=== PATIENT | female | born 1990 | race Caucasian/White ===

== ENCOUNTER 2016-10-27 14:08 | Emergency (ER) | payer OTHER ==
[2016-10-27 14:15] VITALS: BP 144/88
--- NOTE | 2016-10-27 15:24 | UC ---
Throat Pain/Nasal Reji HPI - HPI Summary HPI Summary: Sore throat body aches and loose stool for 4 days--- - History of Current Complaint Chief Complaint: UCRespiratory Stated Complaint: SORE THROAT Time Seen by Provider: 10/27/16 15:24 Hx Obtained From: Patient Hx Last Menstrual Period: 4 months ago ?: No Onset/Duration: Sudden Onset, Lasting Days - 4 Cough: None Associated Signs & Symptoms: Positive: Negative - Allergies/Home Medications Allergies/Adverse Reactions: Allergies Allergy/AdvReac Type Severity Reaction Status Date / Time No Known Allergies Allergy Verified 10/27/16 14:15 PMH/Surg Hx/FS Hx/Imm Hx Previously Healthy: Yes - Surgical History Surgical History: None - Family History Known Family History: Positive: None - Social History Occupation: Employed Full-time Lives: With Family Alcohol Use: Rare Substance Use Type: None Smoking Status (MU): Light Every Day Tobacco Smoker Type: Cigarettes Amount Used/How Often: 1/2 ppd Household Exposure Type: Cigarettes Cessation Counseling: Patient Advised to Stop Review of Systems Constitutional: Fatigue Skin: Negative Eyes: Negative ENT: Sore Throat Respiratory: Negative Cardiovascular: Negative Gastrointestinal: Diarrhea Genitourinary: Negative Motor: Negative Neurovascular: Negative Musculoskeletal: Negative Neurological: Negative Psychological: Negative Is Patient Immunocompromised?: Yes All Other Systems Reviewed And Are Negative: No Physical Exam Triage Information Reviewed: Yes Appearance: Well-Appearing, No Pain Distress, Well-Nourished Vital Signs: Initial Vital Signs Temp 98.0 F 10/27/16 14:12 Pulse 117 10/27/16 14:12 Resp 18 10/27/16 14:12 BP 144/88 10/27/16 14:12 Pulse Ox 99 10/27/16 14:12 Vital Signs Reviewed: Yes Eye Exam: Normal Eyes: Positive: Conjunctiva Clear ENT Exam: Normal ENT: Positive: Normal ENT inspection, Hearing grossly normal, Pharynx normal, TMs normal. Negative: Nasal congestion, Nasal drainage, Trismus, Muffled/ hoarse voice Dental Exam: Normal Neck exam: Normal Neck: Positive: Supple, Nontender, No Lymphadenopathy Respiratory Exam: Normal Respiratory: Positive: Chest non-tender, No respiratory distress Cardiovascular Exam: Normal Cardiovascular: Positive: RRR, No Murmur, Brisk Capillary Refill Abdominal Exam: Normal Abdomen Description: Positive: Nontender, No Organomegaly, Soft. Negative: CVA Tenderness (R), CVA Tenderness (L) Bowel Sounds: Positive: Present Musculoskeletal Exam: Normal Musculoskeletal: Positive: Strength Intact, ROM Intact Neurological Exam: Normal Neurological: Positive: Alert, Muscle Tone Normal Psychological Exam: Normal Skin Exam: Normal Diagnostics - Laboratory ABG Interpretation: rst and Flu A (-) Throat Pain/Nasal Course/Dx - Course Assessment/Plan: rest increase fluids, follow with pcp prn - Differential Dx/Diagnosis Differential Diagnosis/HQI/PQRI: Otitis Media, Pharyngitis, Sinusitis, URI, Other - Influenza Provider Diagnoses: Viral Syndrome Discharge - Discharge Plan Condition: Stable Disposition: HOME Patient Education Materials: Viral Syndrome (ED) Forms: *Work Release Referrals: [facility] [place] PHYSICIAN REFERRAL [Outside] - If Needed
== END 2016-10-27 16:10 | disposition home or self-care (01) ==
LOC: UCEAST 14:08
DX: B34.9 Viral infection, unspecified (principal); F17.210 Nicotine dependence, cigarettes, uncomplicated
CPT/HCPCS: 87502; 87651; 99211; G0463

== ENCOUNTER 2017-05-30 18:28 | Emergency (ER) | payer SELFPAY ==
[2017-05-30 18:50] VITALS: BP 146/99
[2017-05-30] MEDS ORDERED: Lidocaine 2% PF * 5 ML VIAL INJ ONE (19:04)
[2017-05-30] MEDS ORDERED: Tetan/Diph/Pertus SYR(Tdap)* 0.5 ML SYR(BOOSTRIX) use SYR IM ONE (19:05)
--- NOTE | 2017-05-30 19:11 | UC ---
Laceration HPI - HPI Summary HPI Summary: was cutting bread about 45 min ago and cut her index finger with a knife. States she does not recall when the last tetanus vaccine was. Denies other PMH, NKDA. - History Of Current Complaint Chief Complaint: UCUpperExtremity Stated Complaint: FINGER LACERATION Time Seen by Provider: 05/30/17 19:04 Hx Obtained From: Patient Hx Last Menstrual Period: 6 months ago Laceration Location: Finger - second finger dorsal aspect of left hand mid proxymal phalanx Mechanism Of Injury: Sharp Trauma Onset/Duration: Sudden Onset, Lasting Minutes Severity: Moderate Pain Intensity: 6 Aggravating Factors: Movement - Allergies/Home Medications Allergies/Adverse Reactions: Allergies Allergy/AdvReac Type Severity Reaction Status Date / Time No Known Allergies Allergy Verified 05/30/17 18:42 PMH/Surg Hx/FS Hx/Imm Hx Previously Healthy: Yes - Surgical History Surgical History: None - Family History Known Family History: Positive: None - Social History Alcohol Use: Weekly Substance Use Type: None Smoking Status (MU): Light Every Day Tobacco Smoker Type: Cigarettes Amount Used/How Often: 1/2 ppd Household Exposure Type: Cigarettes - Immunization History Most Recent Tetanus Shot: unsure Review of Systems All Other Systems Reviewed And Are Negative: Yes Physical Exam - Summary Physical Exam Summary: Transverse laceration 1.8 cm second finger dorsal aspect of left hand mid proxymal phalanx, radial and ulnar pulses intact, capillary refill less 2 sec Triage Information Reviewed: Yes Appearance: Well-Appearing, Obese Vital Signs: Initial Vital Signs Temp 98.2 F 05/30/17 18:43 Pulse 100 05/30/17 18:43 Resp 20 05/30/17 18:43 BP 146/99 05/30/17 18:43 Pulse Ox 97 05/30/17 18:43 Vital Signs Reviewed: Yes Eyes: Positive: Conjunctiva Clear ENT: Positive: Hearing grossly normal Neck exam: Normal Respiratory: Positive: Chest non-tender Cardiovascular: Positive: Pulses Normal, Brisk Capillary Refill Laceration Repair - Laceration Repair 1 Description: Linear - 3 sutures Laceration Size After Repair: Length (cm) - 1.8 Modified For Repair: No Type Injection: Local Anesthesia Used: 2.0% Lido Cleansing Completed Via Routine Prep: Yes Irrigation With Pressure Irrigation Device: No Closure Material: Skin Adhesive, Sutures Closure Method: Single Layer Suture Of: Skin, SQ Suture Type: Prolene Laceration Course/Dx - Course/Dx Course Of Treatment: patient tolerated procedure well, instructions for wound care given, Tdap administer, f/u 7 days for suture removal - Differential Dx - Laceration/Wound Provider Diagnoses: Laceration of finger Discharge - Sign-Out/Discharge Documenting (check all that apply): Discharge - Discharge Plan Condition: Stable Disposition: HOME Patient Education Materials: Care For Your Stitches (ED), Laceration (DC) Referrals: No Primary Care Phys,NOPCP [Primary Care Provider] - - Billing Disposition and Condition Condition: STABLE Disposition: HOME Images Hands: 1 - linear laceration 1.8cm in length
== END 2017-05-30 20:20 | disposition home or self-care (01) ==
LOC: UCEAST 18:28
DX: S61.211A Laceration without foreign body of left index finger without damage to nail, initial encounter (principal); W26.0XXA Contact with knife, initial encounter; Y93.G1 Activity, food preparation and clean up; Y92.9 Unspecified place or not applicable; Z23 Encounter for immunization; F17.210 Nicotine dependence, cigarettes, uncomplicated
CPT/HCPCS: 12001; 90471; 90715; 99211; G0463

== ENCOUNTER 2017-07-10 11:53 | Emergency (ER) | payer SELFPAY ==
[2017-07-10 14:03] VITALS: BP 129/84
--- NOTE | 2017-07-10 14:26 | UC ---
Abdominal Pain Female HPI - HPI Summary HPI Summary: 26 year old female with abdominal concern. Pt states runny nose, sore throat, body aches and yellow/bloody discharge from belly button. Pt states symptoms began 07/09/17. Has had some yellow discharge in the AM from the belly button and scraped it out and now with some blood. had similar Sx a year ago and dx with cellulitis and given antibiotics and it went away. no PCP [ End ] - History of Current Complaint Chief Complaint: UCGeneralIllness Stated Complaint: UMBILICAL DISCHARGE Time Seen by Provider: 07/10/17 13:07 Hx Obtained From: Patient Hx Last Menstrual Period: 6 months ago Onset/Duration: Gradual Onset Timing: Constant Severity Initially: Mild Severity Currently: Mild Pain Intensity: 7 Aggravating Factor(s): Nothing Alleviating Factor(s): Nothing Allergies/Adverse Reactions: Allergies Allergy/AdvReac Type Severity Reaction Status Date / Time No Known Allergies Allergy Verified 07/10/17 12:34 PMH/Surg Hx/FS Hx/Imm Hx Previously Healthy: Yes - Surgical History Surgical History: None - Family History Known Family History: Positive: None - Social History Occupation: Employed Full-time Alcohol Use: Weekly Substance Use Type: None Smoking Status (MU): Heavy Every Day Tobacco Smoker Type: Cigarettes Amount Used/How Often: 1/2 ppd Household Exposure Type: Cigarettes - Immunization History Most Recent Tetanus Shot: unsure Review of Systems Constitutional: Fatigue Respiratory: Cough Gastrointestinal: Negative, Other - yellow / bloody discharge belloy button Genitourinary: Negative Is Patient Immunocompromised?: No All Other Systems Reviewed And Are Negative: Yes Physical Exam Triage Information Reviewed: Yes Appearance: Well-Appearing, No Pain Distress, Well-Nourished Vital Signs: Initial Vital Signs Temp 98.8 F 07/10/17 12:34 Pulse 123 07/10/17 12:34 Resp 18 07/10/17 12:34 BP 153/109 07/10/17 12:34 Pulse Ox 100 07/10/17 12:34 Vital Signs Reviewed: Yes Eye Exam: Normal ENT Exam: Normal Dental Exam: Normal Neck exam: Normal Neck: Positive: 1 Respiratory Exam: Normal Cardiovascular Exam: Normal Abdominal Exam: Normal Abdomen Description: Positive: Nontender, No Organomegaly, Soft, Other: - scant dried blood in umbilicus. Negative: CVA Tenderness (R), CVA Tenderness (L), Distended, Guarding Musculoskeletal Exam: Normal Neurological Exam: Normal Psychological Exam: Normal Skin Exam: Normal Abd Pain Female Course/Dx - Course Course Of Treatment: no obvious abdominal concerns. she feels it was treated previously with antibiotics but not warranted at this time . advised monitor the Sx, increase water intake , if any discharge tomorrow can start antibiotics but otherwise do not use and just cleanse the umbilicus with soap and water and topical med. she is aware of SE of meds. if any concerns go to ED for further eval. advise to est care with PCP and [facility] and needs follow up for hematuria as well. pt agreeable to plan - Differential Dx/Diagnosis Provider Diagnoses: fatigue. umbilicus discomfort. microscopic hematuria Discharge - Sign-Out/Discharge Documenting (check all that apply): Discharge/Admit/Transfer - Discharge Plan Condition: Good Disposition: HOME Referrals: No Primary Care Phys,NOPCP [Primary Care Provider] - - Billing Disposition and Condition Condition: GOOD Disposition: HOME
== END 2017-07-10 14:56 | disposition home or self-care (01) ==
LOC: UCEAST 11:53
DX: R53.83 Other fatigue (principal); R10.33 Periumbilical pain; R31.29 Other microscopic hematuria; F17.210 Nicotine dependence, cigarettes, uncomplicated
CPT/HCPCS: 81003; 93005; 99212; G0463

== ENCOUNTER 2017-07-11 19:58 | Emergency (ER) | payer OTHER ==
--- NOTE | 2017-07-11 20:45 | ED ---
Skin Complaint - HPI Summary HPI Summary: 26F presents with bloody discharge and pus drainage from a belly button for 3 days. She denies any fevers or spreading redness. She states she has a history of this four years ago and this resolved with antibiotics. She denies any injury to the area. She denies any history of MRSA. She states 4 days ago she did have an upper respiratory infection with sinus congestion nausea vomiting diarrhea but this is since resolved. She states she has pain only in the area. No nausea or vomiting currently. She has no medical conditions. She has been keeping the area clean. She just started the antibiotic today and took one dose. She states she took it because she continues to have the drainage. - History of Current Complaint Chief Complaint: EDGeneral Time Seen by Provider: 07/11/17 20:21 Stated Complaint: POSS. INFECTION Hx Last Menstrual Period: 6 months ago Pain Intensity: 7 - Allergy/Home Medications Allergies/Adverse Reactions: Allergies Allergy/AdvReac Type Severity Reaction Status Date / Time No Known Allergies Allergy Verified 07/11/17 20:04 PMH/Surg Hx/FS Hx/Imm Hx Endocrine/Hematology History: Denies: Hx Diabetes, Hx Thyroid Disease Cardiovascular History: Denies: Hx Hypertension Respiratory History: Denies: Hx Asthma, Hx Chronic Obstructive Pulmonary Disease (COPD) GI History: Denies: Hx Ulcer - Immunization History Date of Tetanus Vaccine: 2010 Infectious Disease History: No Infectious Disease History: Denies: Hx Clostridium Difficile, Hx Hepatitis, Hx Human Immunodeficiency Virus (HIV), Hx of Known/Suspected MRSA, Hx Shingles, Hx Tuberculosis, Hx Known/ Suspected VRE, Hx Known/Suspected VRSA, History Other Infectious Disease, Traveled Outside the [place] in Last 30 Days - Family History Known Family History: Positive: None - Social History Alcohol Use: Weekly Substance Use Type: Reports: None Smoking Status (MU): Heavy Every Day Tobacco Smoker Type: Cigarettes Amount Used/How Often: 1/2 ppd Review of Systems Negative: Fever Negative: Chest Pain Negative: Shortness Of Breath Positive: Other - belly button blood and pus drainage All Other Systems Reviewed And Are Negative: Yes Physical Exam Triage Information Reviewed: Yes Vital Signs On Initial Exam: Initial Vitals Temp Pulse Resp BP Pulse Ox 98.8 F 133 18 138/94 98 07/11/17 20:00 07/11/17 20:00 07/11/17 20:00 07/11/17 20:00 07/11/17 20:00 Vital Signs Reviewed: Yes Appearance: Positive: Well-Appearing Skin: Positive: Warm, Dry, Other - abrasion noted to belly button with trace blood and scant amount yellow drainage, no surrounding erythema Head/Face: Positive: Normal Head/Face Inspection Eyes: Positive: Normal, Conjunctiva Clear ENT: Positive: Pharynx normal Respiratory/Lung Sounds: Positive: Clear to Auscultation, Breath Sounds Present Cardiovascular: Positive: Normal, RRR Abdomen Description: Positive: Nontender, Soft Bowel Sounds: Positive: Present Musculoskeletal: Positive: Normal Neurological: Positive: Normal Psychiatric: Positive: Normal Diagnostics - Vital Signs Vital Signs Temp Pulse Resp BP Pulse Ox 07/11/17 20:00 98.8 F 133 18 138/94 98 - Laboratory Lab Statement: Any lab studies that have been ordered have been reviewed, and results considered in the medical decision making process. Course/Dx - Course Course Of Treatment: 26F presents with bloody discharge and pus drainage from a belly button for 3 days. She denies any fevers or spreading redness. She states she has a history of this four years ago and this resolved with antibiotics. She denies any injury to the area. She denies any history of MRSA. She states 4 days ago she did have an upper respiratory infection with sinus congestion nausea vomiting diarrhea but this is since resolved. She states she has pain only in the area. No nausea or vomiting currently. She has no medical conditions. She has been keeping the area clean. She just started the antibiotic today and took one dose. She states she took it because she continues to have the drainage. on exam has abrasion noted to belly button with minimal blood and scant yellow discharge. will have continue keflex and told if no improvement in two days to return as will have failed outpatient and may need imaging at that time. do not suspect abscess at this time. patient understand and agrees with plan. - Differential Diagnoses - Skin Complaint Differential Diagnoses: Abscess, Cellulitis, Contact Dermatitis - Diagnoses Provider Diagnoses: Cellulitis of umbilicus Discharge - Sign-Out/Discharge Documenting (check all that apply): Discharge/Admit/Transfer - Discharge Plan Condition: Good Disposition: HOME Patient Education Materials: Cellulitis (ED) Referrals: [facility] – [place] PHYS[facility]IAN REFERRAL [Outside] Additional Instructions: Keep area clean using soap and water at least twice a day Continue antibiotic If redness spreads after two days on antibiotics, develop fever, or any new or worsening symptom return to ED - Billing Disposition and Condition Condition: GOOD Disposition: HOME
[2017-07-11 21:20] VITALS: BP 129/88
--- NOTE | 2017-07-17 07:15 | PN ---
Progress Note - Progress Note Date of Service: 07/17/17 Note: patient wound culture grew peptostreptococci. paitent placed on keflex. called and left vm to call back if no improvement.
== END 2017-07-11 21:19 | disposition home or self-care (01) ==
LOC: ED 19:58
DX: L03.316 Cellulitis of umbilicus (principal); F17.210 Nicotine dependence, cigarettes, uncomplicated
CPT/HCPCS: 87070; 87205; 87640; 87641; 99282

== ENCOUNTER 2018-11-25 16:30 | Emergency (ER) | payer OTHER ==
[2018-11-25 17:03] VITALS: BP 118/62
--- NOTE | 2018-11-25 17:07 | UC ---
Throat Pain/Nasal Reji HPI - HPI Summary HPI Summary: 28 yo female presents with cold symptoms. She tells me that over the last week she has had sinus congestion, sore throat, dry cough, and headache. Her symptoms have been improving and she feels better today. She is concerned because her boyfriend was dx'd with PNA and she wonders if she has it. She has also missed the last few days of work due to her illness and is requesting a work note. Denies fever, chills, SOB, abdominal pain, n/v - History of Current Complaint Chief Complaint: UCGeneralIllness Stated Complaint: SORE THROAT, BODY ACHES Time Seen by Provider: 11/25/18 17:07 Hx Obtained From: Patient Hx Last Menstrual Period: 2 weeks Onset/Duration: Gradual Onset Severity: Moderate Pain Intensity: 7 Pain Scale Used: 0-10 Numeric - Allergies/Home Medications Allergies/Adverse Reactions: Allergies Allergy/AdvReac Type Severity Reaction Status Date / Time No Known Allergies Allergy Verified 11/25/18 16:58 PMH/Surg Hx/FS Hx/Imm Hx - Additional Past Medical History Additional PMH: None - Surgical History Surgical History: None - Family History Known Family History: Positive: None - Social History Occupation: Employed Full-time Lives: With Family Alcohol Use: Weekly Substance Use Type: None Smoking Status (MU): Heavy Every Day Tobacco Smoker Type: Cigarettes Amount Used/How Often: 1/2 ppd Household Exposure Type: Cigarettes - Immunization History Most Recent Tetanus Shot: unsure Review of Systems All Other Systems Reviewed And Are Negative: No Constitutional: Positive: Other - Body aches Skin: Positive: Negative Eyes: Positive: Negative ENT: Positive: Sore Throat, Nasal Discharge Respiratory: Positive: Cough Cardiovascular: Positive: Negative Gastrointestinal: Positive: Negative Neurovascular: Positive: Negative Neurological: Positive: Negative Psychological: Positive: Negative Physical Exam - Summary Physical Exam Summary: GENERAL: NAD. WDWN. No pain distress. SKIN: No rashes, sores, lesions, or open wounds. HEENT: Head: AT/NC Eyes: EOM intact. Conjunctiva clear without inflammation or discharge. Ears: Hearing grossly normal. TMs intact, no bulging, erythema, or edema. Nose: Nasal mucosa pink and moist. NTTP maxillary and frontal sinus. Throat: Posterior oropharynx with mild erythema. No exudates or tonsillar enlargement. Uvula midline. NECK: Supple. Nontender. No lymphadenopathy. CHEST: CTAB. No accessory muscle use. Breathing comfortably and in no distress. CV: RRR. Pulses intact. Cap refill <2seconds NEURO: Alert. PSYCH: Age appropriate behavior. Triage Information Reviewed: Yes Vital Signs: Initial Vital Signs Temp 98.7 F 11/25/18 16:53 Pulse 77 11/25/18 16:53 Resp 16 11/25/18 16:53 BP 118/62 11/25/18 16:53 Pulse Ox 99 11/25/18 16:53 Laboratory Tests 11/25/18 17:16 Group A Strep Rapid Negative Vital Signs Reviewed: Yes Throat Pain/Nasal Course/Dx - Course Course Of Treatment: Suspect viral syndrome. POC strep negative. Advised to continue with tylenol/ibuprofen and OTC cold medicine as directed as her symptoms are improving. - Differential Dx/Diagnosis Provider Diagnosis: Viral syndrome Discharge ED - Sign-Out/Discharge Documenting (check all that apply): Patient Departure All imaging exams completed and their final reports reviewed: No Studies - Discharge Plan Condition: Stable Disposition: HOME Patient Education Materials: Viral Syndrome (ED) Forms: *Work Release Referrals: Luli Sims MD [Primary Care Provider] - Additional Instructions: If you develop a fever, shortness of breath, chest pain, new or worsening symptoms - please call your PCP or go to the ED immediately. Your symptoms are likely from a viral infection. Viral infections do not respond to antibiotics and are limited to the treatment of symptoms. Viral infections typically run their course in 7-10 days. Drink plenty of fluids to avoid dehydration especially if you are running any fever. Use salt water gargles several times a day. Take over the counter acetaminophen (Tylenol) or ibuprofen (Advil, Motrin) according to directions as needed for pain or fever. You may also use Chloraseptic spray or Cepacol lonzenges according to directions which contain a numbing medication and can provide some temporary relief from your sore throat. Return here or follow up with your primary care provider in 7 days if symptoms persist. - Billing Disposition and Condition Condition: STABLE Disposition: Home
== END 2018-11-25 17:33 | disposition home or self-care (01) ==
LOC: UCEAST 16:30
DX: B34.9 Viral infection, unspecified (principal); R09.81 Nasal congestion; R05 Cough; R51 Headache; F17.210 Nicotine dependence, cigarettes, uncomplicated
CPT/HCPCS: 87651; 99211; G0463

== ENCOUNTER 2018-12-26 17:51 | Emergency (ER) | payer OTHER ==
[2018-12-26 18:07] VITALS: BP 120/76
--- NOTE | 2018-12-26 19:23 | UC ---
Truncal Trauma HPI - HPI Summary HPI Summary: 28 yo female with left sided chest pain x 1 week Occurred when a friend hugged her and lifted her now with cough x three days (productive) - History Of Current Complaint Chief Complaint: UCGeneralIllness Stated Complaint: RIB PAIN,COUGH Time Seen by Provider: 12/26/18 19:07 Hx Obtained From: Patient Hx Last Menstrual Period: 11/13/18 Onset/Duration: Sudden Onset, Lasting Days Onset Of Pain: Immediate Severity Initially: Moderate Severity Currently: Moderate Pain Intensity: 7 Pain Scale Used: 0-10 Numeric Mechanism Of Injury: Other - bear hug Aggravating Factor(s): Deep Breathing, Cough Alleviating factor(s): Nothing Associated Signs And Symptoms: Positive: Cough Torso: 1 - mcgarry here - Allergies/Home Medications Allergies/Adverse Reactions: Allergies Allergy/AdvReac Type Severity Reaction Status Date / Time No Known Allergies Allergy Verified 12/26/18 18:07 Home Medications: Home Medications Omeprazole 20 mg PO DAILY 12/26/18 [History Confirmed 12/26/18] PMH/Surg Hx/FS Hx/Imm Hx Previously Healthy: Yes - Surgical History Surgical History: None - Family History Known Family History: Positive: Hypertension, Non-Contributory - Social History Alcohol Use: Weekly Substance Use Type: None Smoking Status (MU): Heavy Every Day Tobacco Smoker Type: Cigarettes Amount Used/How Often: 1/2 ppd Household Exposure Type: Cigarettes - Immunization History Most Recent Tetanus Shot: unsure Review of Systems All Other Systems Reviewed And Are Negative: Yes Constitutional: Positive: Negative Skin: Positive: Negative Eyes: Positive: Negative ENT: Positive: Negative Respiratory: Positive: Cough Cardiovascular: Positive: Chest Pain Gastrointestinal: Positive: Negative Genitourinary: Positive: Negative Motor: Positive: Negative Neurovascular: Positive: Negative Musculoskeletal: Positive: Negative Neurological: Positive: Negative Physical Exam Triage Information Reviewed: Yes Appearance: Well-Appearing, No Pain Distress Vital Signs: Initial Vital Signs Temp 98.8 F 12/26/18 18:00 Pulse 90 12/26/18 18:00 Resp 16 12/26/18 18:00 BP 120/76 12/26/18 18:00 Pulse Ox 100 12/26/18 18:00 Vital Signs Reviewed: Yes Eyes: Positive: Conjunctiva Clear ENT: Positive: Hearing grossly normal. Negative: Nasal congestion, Nasal drainage, Trismus, Muffled voice Dental Exam: Normal Neck: Positive: Supple, Nontender, No Lymphadenopathy Respiratory: Positive: Lungs clear, Normal breath sounds, No respiratory distress. Negative: Chest non-tender Cardiovascular: Positive: RRR, No Murmur Abdomen Description: Positive: Nontender, No Organomegaly Musculoskeletal: Positive: ROM Intact, No Edema Neurological: Positive: Alert Psychological Exam: Normal Skin Exam: Normal Diagnostics - Radiology No standard instances Radiology Interpretation Completed By: ED Physician Summary of Radiographic Findings: no ptx or rib fracture noted by me Truncal Trauma Course/Dx - Course Course Of Treatment: pt decline work excuse or light duty note - Differential Dx/Diagnosis Provider Diagnosis: Contusion of rib on left side Discharge ED - Sign-Out/Discharge Documenting (check all that apply): Patient Departure All imaging exams completed and their final reports reviewed: No - Discharge Plan Condition: Stable Disposition: HOME Patient Education Materials: Rib Contusion (ED), How to Use a Metered-Dose Inhaler and a Spacer (ED) Referrals: Luli Sims MD [Primary Care Provider] - 2 Weeks Additional Instructions: The official XR reading is pending recheck for new or worsening symptoms aleve 2 twice daily with food for pain - Billing Disposition and Condition Condition: STABLE Disposition: Home
[2018-12-26] MEDS ORDERED: Albuterol HFA INHALER* 8 gm MDI INH ONE (19:37)
[2018-12-26] MEDS ORDERED: Benzonatate CAP* 100 MG PO ONE (19:38)
--- NOTE | 2018-12-27 14:05 | UC ---
- Progress Note Progress Note: wet read correct Course/Dx - Diagnoses Provider Diagnoses: Contusion of rib on left side Discharge ED - Sign-Out/Discharge Documenting (check all that apply): Post-Discharge Follow Up All imaging exams completed and their final reports reviewed: Yes - Discharge Plan Condition: Stable Disposition: HOME Prescriptions: Benzonatate CAP* [Tessalon CAP*] 100 - 200 mg PO TID PRN #[id number] cap PRN Reason: Cough Patient Education Materials: How to Use a Metered-Dose Inhaler and a Spacer (ED ), Rib Contusion (ED) Referrals: Luli Sims MD [Primary Care Provider] - 2 Weeks Additional Instructions: The official XR reading is pending recheck for new or worsening symptoms aleve 2 twice daily with food for pain - Billing Disposition and Condition Condition: STABLE Disposition: Home
== END 2018-12-26 19:57 | disposition home or self-care (01) ==
LOC: UCEAST 17:51
DX: S20.20XA Contusion of thorax, unspecified, initial encounter (principal); F17.210 Nicotine dependence, cigarettes, uncomplicated; X50.9XXA Other and unspecified overexertion or strenuous movements or postures, initial encounter; Y92.9 Unspecified place or not applicable
CPT/HCPCS: 99213; A9270-GY; G0463

== ENCOUNTER 2019-04-15 16:51 | Emergency (ER) | payer OTHER ==
--- NOTE | 2019-04-15 18:46 | UC ---
Throat Pain/Nasal Reji HPI - HPI Summary HPI Summary: 28-year-old woman comes in with 3 day history of upper respiratory tract infection symptoms. She had fever chills headache that he aches mild sore throat diarrhea. Patient's feeling a lot better today. She reports she's had strep in the past her throat does not feel like strep. - History of Current Complaint Chief Complaint: UCGeneralIllness Stated Complaint: SORE THROAT Time Seen by Provider: 04/15/19 18:40 Hx Last Menstrual Period: 11/13/18 Pain Intensity: 6 - Allergies/Home Medications Allergies/Adverse Reactions: Allergies Allergy/AdvReac Type Severity Reaction Status Date / Time No Known Allergies Allergy Verified 04/15/19 16:57 Home Medications: Home Medications Control 1 tab PO DAILY 01/04/15 [History Confirmed 04/15/19] PMH/Surg Hx/FS Hx/Imm Hx Previously Healthy: Yes - Surgical History Surgical History: None - Family History Known Family History: Positive: Hypertension, Non-Contributory - Social History Alcohol Use: Rare Substance Use Type: None Smoking Status (MU): Heavy Every Day Tobacco Smoker Type: Cigarettes Amount Used/How Often: 1/2 ppd Household Exposure Type: Cigarettes - Immunization History Most Recent Tetanus Shot: unsure Review of Systems All Other Systems Reviewed And Are Negative: Yes Constitutional: Positive: Other - SEE HPI Skin: Positive: Negative Eyes: Positive: Negative ENT: Positive: Sore Throat, Nasal Discharge, Sinus Congestion Respiratory: Positive: Negative Cardiovascular: Positive: Negative Gastrointestinal: Positive: Diarrhea Motor: Positive: Negative Neurovascular: Positive: Negative Musculoskeletal: Positive: Myalgia Neurological/Mental Status: Positive: Headache Psychological: Positive: Negative Is Patient Immunocompromised?: No Physical Exam Triage Information Reviewed: Yes Appearance: Well-Appearing, No Pain Distress, Well-Nourished Vital Signs: Initial Vital Signs Temp 98.8 F 04/15/19 16:58 Pulse 114 04/15/19 16:58 Resp 16 04/15/19 16:58 BP 142/101 04/15/19 16:58 Pulse Ox 99 04/15/19 16:58 Vital Signs Reviewed: Yes Eye Exam: Normal Eyes: Positive: Conjunctiva Clear ENT: Positive: Pharynx normal, Nasal congestion, TMs normal Neck: Positive: Supple Respiratory: Positive: Lungs clear, Normal breath sounds, No respiratory distress Cardiovascular: Positive: RRR Musculoskeletal: Positive: Strength Intact, ROM Intact Neurological: Positive: Alert, Muscle Tone Normal Psychological: Positive: Age Appropriate Behavior Skin Exam: Normal Throat Pain/Nasal Course/Dx - Course Course Of Treatment: Patient's posterior pharynx was not erythematous. Patient declined a strep test. Overall the patient's improving from her illness. Primarily the patient wishes to get a work note for the day she missed April 13 and 2019. Patient to get reevaluated if worse or any questions or concerns. - Differential Dx/Diagnosis Provider Diagnosis: Upper respiratory infection Discharge ED - Sign-Out/Discharge Documenting (check all that apply): Patient Departure All imaging exams completed and their final reports reviewed: No Studies - Discharge Plan Condition: Stable Disposition: HOME Patient Education Materials: Upper Respiratory Infection (ED) Forms: *Work Release Referrals: Luli Sims MD [Primary Care Provider] - Additional Instructions: FOLLOW UP WITH YOUR DOCTOR IF NOT COMPLETELY IMPROVED. GET REEVALUATED SOONER IF NOT IMPROVED OR WORSE OR ANY QUESTIONS OR CONCERNS. - Billing Disposition and Condition Condition: STABLE Disposition: Home
[2019-04-15 18:57] VITALS: BP 143/100
== END 2019-04-15 18:57 | disposition home or self-care (01) ==
LOC: UCEAST 16:51
DX: J06.9 Acute upper respiratory infection, unspecified (principal); R19.7 Diarrhea, unspecified; F17.210 Nicotine dependence, cigarettes, uncomplicated
CPT/HCPCS: 99212; G0463